=== PATIENT | female | born 2005 | race Caucasian/White ===

== ENCOUNTER → 2024-04-13 | Outpatient (CLI) | payer OTHER | LOC: M WHC 08:09 | PROVIDERS: ATTEND Physician Assistant | DX: N60.01 Solitary cyst of right breast (principal); Z80.3 Family history of malignant neoplasm of breast ==

== ENCOUNTER → 2025-01-02 | Outpatient (CLI) | payer OTHER ==
[~2025-01-02] MED LIST: ISOVUE-300 61% 100 ML VIAL As Ordered ONE; LIDOCAINE 1% MDV 20 ML VIAL As Ordered ONE; PROHANCE 279.3MG/ML 5ML VIAL As Ordered ONE
== END ==
LOC: M RAD 13:00
PROVIDERS: ATTEND Physician Assistant
DX: M25.551 Pain in right hip (principal); M25.552 Pain in left hip; S73.101A Unspecified sprain of right hip, initial encounter; X58.XXXA Exposure to other specified factors, initial encounter; Y92.9 Unspecified place or not applicable
CPT/HCPCS: 27093; 73723; 77002; A9576; Q9967

== ENCOUNTER → 2025-01-06 | Outpatient (CLI) | payer OTHER | LOC: M RAD 12:26 | PROVIDERS: ATTEND Physician Assistant | DX: M25.552 Pain in left hip (principal); S73.109A Unspecified sprain of unspecified hip, initial encounter; X58.XXXA Exposure to other specified factors, initial encounter; Y92.9 Unspecified place or not applicable | CPT/HCPCS: 27093; 73723; 77002; A9576; Q9967 ==

== ENCOUNTER → 2025-03-28 | Outpatient (CLI) | payer OTHER ==
[~2025-03-28] MED LIST changes: -PROHANCE 279.3MG/ML 5ML VIAL As Ordered ONE; +TRIAMCINOLONE ACETONIDE SUSP 40MG/ML 1ML VIAL As Ordered ONE
== END ==
LOC: M RAD 14:50
PROVIDERS: ATTEND Physician Assistant Surgical
DX: S73.121A Ischiocapsular ligament sprain of right hip, initial encounter (principal); X58.XXXA Exposure to other specified factors, initial encounter; Y92.9 Unspecified place or not applicable
CPT/HCPCS: 20610; 77002; J3301; Q9967

== ENCOUNTER → 2025-04-25 | Outpatient (CLI) | payer OTHER | LOC: M RAD 14:25 | PROVIDERS: ATTEND Physician Assistant Surgical | DX: S73.122A Ischiocapsular ligament sprain of left hip, initial encounter (principal); X58.XXXA Exposure to other specified factors, initial encounter; Y92.9 Unspecified place or not applicable | CPT/HCPCS: 20610; 77002; J3301; Q9967 ==

== ENCOUNTER 2025-05-24 10:24 | Emergency (ER) | payer OTHER ==
[~2025-05-24] VITALS: Ht 167.6 cm; Wt 61.4 kg
[2025-05-24] MEDS: KETOROLAC 60 MG/2 ML VIAL IM ONE (12:49)
[2025-05-24 12:51] VITALS: BP 107/71; TEMP 98.1; O2SAT 100
== END 2025-05-24 13:05 | disposition home or self-care (01) ==
LOC: M ED 10:24
DX: S43.402A Unspecified sprain of left shoulder joint, initial encounter (principal); W01.198A Fall on same level from slipping, tripping and stumbling with subsequent striking against other object, initial encounter; Y92.009 Unspecified place in unspecified non-institutional (private) residence as the place of occurrence of the external cause; Y93.89 Activity, other specified; Y99.9 Unspecified external cause status
CPT/HCPCS: 73030; 96372; 99284; J1885